=== PATIENT | female | born 1985 | race Caucasian/White ===

== ENCOUNTER 2017-01-25 14:19 | Emergency (ER) | payer MEDICAID ==
--- NOTE | 2017-01-25 14:37 | ED Physician Documentation ---
History of Present Illness - Stated complaint Stated Complaint: FEEL LIKE SOMETHING STUCK IN THROAT - Chief complaint Chief Complaint: Heent - History obtained from History obtained from: Patient, Family - History of Present Illness Timing: Today, How many hours ago (1) Pain level max: 4 Pain level now: 4 Improved by: nothing Worsened by: swallowing - Additonal information Additional information: Patient is a 31-year-old female who presents to the emergency department with a piece of pork stuck in her esophagus while eating today. She states it feels like it got stuck approximately midway in the esophagus. She states this is happened to her once several years ago. Has not had an endoscopy for this. Has been swallowing her saliva, but states that when she drinks water she vomits. No abdominal pain. No fevers. Review of Systems Constitutional: denies: Fever : denies: Now EGA Skin: denies: Rash PD PAST MEDICAL HISTORY - Past Medical History Past Medical History: Yes Cardiovascular: Hypertension Respiratory: Asthma - Past Surgical History Past Surgical History: Yes General: Cholecystectomy - Present Medications Home Medications: Ambulatory Orders Medication Instructions Recorded Confirmed No Known Home Medications [No 01/25/17 01/25/17 Known Home Medications] - Allergies Allergies/Adverse Reactions: Allergies Allergy/AdvReac Type Severity Reaction Status Date / Time No Known Drug Allergies Allergy Verified 01/25/17 14:25 - Social History Does the pt smoke?: No Smoking Status: Never smoker Does the pt drink ETOH?: Yes Does the pt have substance abuse?: No - Immunizations Immunizations are current?: Yes PD ED PE NORMAL - Vitals Vital signs reviewed: Yes - General General: Alert and oriented X 3, No acute distress - HEENT HEENT: Moist mucous membranes, Pharynx benign - Neck Neck: Supple, no meningeal sign - Cardiac Cardiac: RRR - Respiratory Respiratory: No respiratory distress, Clear bilaterally - Abdomen Abdomen: Soft, Non tender, Non distended - Derm Derm: Warm and dry - Neuro Neuro: Alert and oriented X 3 Results - Vitals Vitals: Vital Signs - 24 hr 01/25/17 01/25/17 14:22 15:17 Temperature 36.4 C L 36.6 C Heart Rate 101 H 84 Respiratory 20 18 Rate Blood Pressure 194/141 H 184/122 H O2 Saturation 96 99 Oxygen O2 Source Room air PD MEDICAL DECISION MAKING - ED course Complexity details: re-evaluated patient, considered differential, d/w patient, d/w family ED course: Patient is a 31-year-old female who presents to the emergency department with an impacted esophageal food bolus. Given EZ gas ii as well as Coca-Cola and the bolus passed. She is tolerating p.o. without difficulty. No vomiting. Recommend that she follow-up with an endoscopy as this has happened twice now. She also states she has not taken her blood pressure medications and her blood pressure is normally high. Patient counseled regarding signs and symptoms for which I believe and urgent re-evaluation would be necessary. Patient with good understanding of and agreement to plan and is comfortable going home at this time This document was made in part using voice recognition software. While efforts are made to proofread this document, sound alike and grammatical errors may occur. Departure - Departure Disposition: 01 Home, Self Care Clinical Impression: Food impaction of esophagus Qualifiers: Encounter type: initial encounter Qualified Code(s): T18.128A - Food in esophagus causing other injury, initial encounter Condition: Good Instructions: ED Foreign Body Esophageal Rslv Follow-Up: your,doctor in 1 week [Other] Comments: As this is happened to you twice, you should have an endoscopy to evaluate if you have strictures or other issues with your esophagus. Return if you worsen.
[2017-01-25 15:18] VITALS: BP 184/122
== END 2017-01-25 15:22 | disposition home or self-care (01) ==
LOC: ED 14:19
DX: T18.128A Food in esophagus causing other injury, initial encounter (principal); X58.XXXA Exposure to other specified factors, initial encounter; I10 Essential (primary) hypertension
CPT/HCPCS: 99283

== ENCOUNTER 2018-05-27 11:07 | Outpatient (CLI) | payer MEDICAID ==
--- NOTE | 2018-05-27 11:44 | XRAY Report ---
Reason: ground level foosh Procedure Date: 05/27/2018 Accession Number: [id number] / [id number] Procedure: XRN - Wrist 3 View RT CPT Code: FULL RESULT: EXAM: RIGHT WRIST RADIOGRAPHY EXAM DATE: 05/27/2018 11:23 AM. CLINICAL HISTORY: Ground level foosh. COMPARISON: None. TECHNIQUE: 3 views. FINDINGS: Bones: Normal. No fractures or bone lesions. Joints: Normal. No subluxations. Soft Tissues: Normal. No soft tissue swelling. IMPRESSION: Normal wrist radiography. RADIA
== END 2018-05-27 11:08 | disposition home or self-care (01) ==
LOC: DI.N 11:07
PROVIDERS: ATTEND Physician Assistant Medical
DX: M25.531 Pain in right wrist (principal)

== ENCOUNTER 2018-06-02 08:00 | Outpatient (CLI) | payer MEDICAID | END 2018-06-02 08:01 | disposition home or self-care (01) | LOC: LAB.N 08:00 | PROVIDERS: ATTEND Physician Assistant Medical | DX: Z13.89 Encounter for screening for other disorder (principal) | CPT/HCPCS: 36415; 86735; 86762; 86765 ==

== ENCOUNTER 2018-07-09 14:53 | Outpatient (CLI) | payer MEDICAID ==
--- NOTE | 2018-07-09 18:00 | Ultrasound Report ---
Reason: DYSFUNCTIONAL UTERINE BLEEDING,AMENORRHEA,SCONDARY Procedure Date: 07/09/2018 Accession Number: [id number] / [id number] Procedure: US - Pelvic w/Transvaginal CPT Code: FULL RESULT: EXAM: PELVIC ULTRASOUND EXAM DATE: 07/09/2018 03:45 PM. CLINICAL HISTORY: DYSFUNCTIONAL UTERINE BLEEDING,AMENORRHEA,SCONDARY. LMP 06/26/2018 COMPARISON: None. TECHNIQUE: Realtime transabdominal pelvic scan performed to identify the uterus and adnexa and as an overview of other pelvic structures, followed by transvaginal scan to provide greater detail of the uterus and adnexa, with static image documentation. FINDINGS: Uterus: 9.1 x 4.2 x 5.3 cm, volume 106 cc. Anteverted position. Normal overall size and echotexture. Masses: None. Endometrium: 11 mm. Normal. Cervix: Unremarkable. Right Ovary: 2.6 x 1.5 x 2 cm, volume 3.9 cc. Normal echotexture and blood flow. Left Ovary: 2.2 x 2.3 x 2.2 cm, volume 8.5 cc. Normal echotexture and blood flow. Free Fluid: None. Other: None. IMPRESSION: No significant abnormality pelvic ultrasound. RADIA
== END 2018-07-09 14:54 | disposition home or self-care (01) ==
LOC: DI 14:53
PROVIDERS: ATTEND Obstetrics & Gynecology
DX: N93.8 Other specified abnormal uterine and vaginal bleeding (principal); N91.1 Secondary amenorrhea
CPT/HCPCS: 76830; 76856

== ENCOUNTER 2018-07-30 09:45 | Day surgery (SDC) | payer MEDICAID ==
[2018-07-30] MEDS ORDERED: LACTATED RINGERS 1,000 ML IV ONE ×2 (10:19→12:30)
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
[2018-07-30] MEDS ORDERED: LIDO GARGLE 30 ML BOTTLE ONE (12:09)
[2018-07-30] MEDS ORDERED: LIDO GARGLE 30 ML BOTTLE TOP ONE (12:22)
[2018-07-30] MEDS ORDERED: BENZOCAINE/TETRACAINE/BUTAMBEN 20 GM TOP ONE (12:23)
[2018-07-30] MEDS ORDERED: MIDAZOLAM 2 MG/2 ML VIAL IVP ONE (12:43)
[2018-07-30] MEDS ORDERED: fentaNYL 100 MCG/2 ML VIAL IVP ONE (12:43)
[2018-07-30 13:04] VITALS: BP 134/79
== END 2018-07-30 09:46 | disposition home or self-care (01) ==
LOC: SDS 09:45
PROVIDERS: ATTEND Surgery
PROC: 0DB38ZX Excision of Lower Esophagus, Via Natural or Artificial Opening Endoscopic, Diagnostic (ICD-10-PCS; principal; 2018-07-30 11:15)
DX: K21.0 Gastro-esophageal reflux disease with esophagitis (principal); K44.9 Diaphragmatic hernia without obstruction or gangrene; R13.10 Dysphagia, unspecified; I10 Essential (primary) hypertension; J45.909 Unspecified asthma, uncomplicated; E66.01 Morbid (severe) obesity due to excess calories; Z68.41 Body mass index [BMI] 40.0-44.9, adult; F32.9 Major depressive disorder, single episode, unspecified; F41.9 Anxiety disorder, unspecified; F43.10 Post-traumatic stress disorder, unspecified; Z90.49 Acquired absence of other specified parts of digestive tract; Z79.51 Long term (current) use of inhaled steroids; Z87.891 Personal history of nicotine dependence
CPT/HCPCS: 43239; A9270; J7120

== ENCOUNTER 2018-08-12 08:00 | Outpatient (CLI) | payer MEDICAID ==
[2018-08-12 19:32] LABS: BASOPHILS % (AUTO) 0.4 %; EOSINOPHILS # (AUTO) 0.3 10^3/uL (0.0-0.7); HGB - HEMOGLOBIN 12.6 g/dL (12.0-16.0); LYMPHOCYTES % (AUTO) 36.4 %; MEAN CORPUSCULAR HEMOGLOBIN 29.4 pg (27.0-31.0); MEAN CORPUSCULAR HGB CONC 31.9 g/dL (32.0-36.0); MEAN CORPUSCULAR VOLUME 92.1 fL (81.0-99.0); MEAN PLATELET VOLUME 10.2 fL (7.9-10.8); MONOCYTES # (AUTO) 0.6 10^3/uL (0.0-1.0); MONOCYTES % (AUTO) 7.1 %; NEUTROPHILS # (AUTO) 4.3 10^3/uL (1.5-6.6); NEUTROPHILS % (AUTO) 51.5 %; PLT - PLATELET COUNT 294 10^3/uL (130-450); RED BLOOD COUNT 4.29 10^6/uL (4.20-5.40); WHITE BLOOD COUNT 8.4 x10^3/uL (4.8-10.8)
[2018-08-12 19:33] LABS: HB2 TOTAL 13.8 g/dL; HEMOGLOBIN A1C 0.72 g/dL; HEMOGLOBIN A1C % 6.9 % (4.6-6.2)
[2018-08-12 19:50] LABS: CALCIUM 9.3 mg/dL (8.5-10.3); CREATININE 0.7 mg/dL (0.4-1.0)
== END 2018-08-12 23:59 | disposition home or self-care (01) ==
LOC: LAB.N 08:00
PROVIDERS: ATTEND Physician Assistant Medical
DX: R73.9 Hyperglycemia, unspecified (principal)
CPT/HCPCS: 36415; 80048; 83036; 84443; 85025

== ENCOUNTER 2018-11-10 09:45 | Outpatient (CLI) | payer MEDICAID ==
--- NOTE | 2018-11-10 12:00 | Ultrasound Report ---
Reason: LOWER LEG PAIN, PEDAL EDEMA Procedure Date: 11/10/2018 Accession Number: [id number] / [id number] Procedure: US - Duplex Ext Veins Left CPT Code: FULL RESULT: EXAM: LEFT LOWER EXTREMITY VENOUS ULTRASOUND EXAM DATE: 11/10/2018 10:43 AM. CLINICAL HISTORY: Left leg pain and edema. Possible DVT. COMPARISON: None. TECHNIQUE: Real-time sonographic vascular imaging was performed by the bleach liquor maker through the LEFT lower extremity utilizing both color-flow and Doppler spectral analysis. Multiple bilingual inside sales representative static images were saved for review. FINDINGS: Common Femoral Vein (CFV): Normal. CFV-GSV Junction: Normal. Profunda Femoral Vein (PFV): Normal. Femoral Vein (FV) Prox: Normal. Femoral Vein (FV) Mid: Normal. Femoral Vein (FV) Dist: Normal. Popliteal Vein: Normal. Posterior Tibial Veins: Normal. Peroneal Veins: Normal. Contralateral Side CFV: Normal. Other: None. IMPRESSION: No evidence for left leg deep venous thrombosis. RADIA
== END 2018-11-10 09:46 | disposition home or self-care (01) ==
LOC: DI 09:45
PROVIDERS: ATTEND Physician Assistant Medical
DX: M79.662 Pain in left lower leg (principal); R60.0 Localized edema

== ENCOUNTER 2018-12-29 14:39 | Outpatient (CLI) | payer MEDICAID ==
--- NOTE | 2018-12-30 14:08 | XRAY Report ---
Reason: HIP JOINT PAIN Procedure Date: 12/29/2018 Accession Number: [id number] / [id number] Procedure: XRN - Hip w/Pelvis 2-3V LT CPT Code: Final Report FULL RESULT: EXAM: LEFT HIP AND PELVIS RADIOGRAPHY EXAM DATE: 12/29/2018 02:57 PM HISTORY: HIP JOINT PAIN COMPARISON: None TECHNIQUE: Single frontal view of the pelvis and frogleg lateral view of the LEFT hip, 2 views total FINDINGS: The pelvic ring is intact. Unremarkable SI joints. No significant focal lesion the pelvic bones. The right hip probably has some mild osteoarthritis with slight apical joint space narrowing and minimal femoral head osteophyte formation. IUD noted in the central pelvis. LEFT Hip: No focal bone lesion. Question of minimal osteoarthritis with slight joint space narrowing. IMPRESSION: Very mild bilateral hip osteoarthritis. Otherwise essentially unremarkable.
== END 2018-12-29 14:40 | disposition home or self-care (01) ==
LOC: DI.N 14:39
PROVIDERS: ATTEND Physician Assistant Medical
DX: M16.0 Bilateral primary osteoarthritis of hip (principal)

== ENCOUNTER 2019-01-26 13:00 | Outpatient (CLI) | payer MEDICAID | END 2019-01-26 13:01 | disposition home or self-care (01) | LOC: DI.N 13:00 | PROVIDERS: ATTEND Physician Assistant Medical | DX: Z53.9 Procedure and treatment not carried out, unspecified reason (principal) ==

== ENCOUNTER 2019-01-26 13:16 | Outpatient (CLI) | payer MEDICAID ==
--- NOTE | 2019-01-27 14:23 | XRAY Report ---
Reason: R shoulder pain Procedure Date: 01/26/2019 Accession Number: [id number] / [id number] Procedure: XRN - Shoulder 3 View RT CPT Code: Final Report FULL RESULT: EXAM: RIGHT SHOULDER RADIOGRAPHY EXAM DATE: 01/26/2019 01:29 PM. CLINICAL HISTORY: R shoulder pain. COMPARISON: None. TECHNIQUE: 3 views. FINDINGS: Bones: Normal. No fracture or bone lesion. Joints: The glenohumeral and acromioclavicular joints are normal. Soft tissues: The visualized hemithorax is unremarkable. No soft tissue swelling. IMPRESSION: Normal shoulder radiography. RADIA
== END 2019-01-26 13:17 | disposition home or self-care (01) ==
LOC: DI.N 13:16
PROVIDERS: ATTEND Physician Assistant Medical
DX: M25.511 Pain in right shoulder (principal)

== ENCOUNTER 2019-09-27 09:27 | Outpatient (CLI) | payer MEDICAID ==
[2019-09-27] MEDS ORDERED: GADOBUTROL 7.5 MMOL/7.5 ML VIAL ONE (09:38)
[2019-09-27] MEDS ORDERED: BUFFERED LIDOCAINE 10 ML SYRINGE ONE (09:38)
[2019-09-27] MEDS ORDERED: BUFFERED LIDOCAINE 10 ML SYRINGE IU ONE (11:19)
[2019-09-27] MEDS ORDERED: GADOBUTROL 7.5 MMOL/7.5 ML VIAL IVP ONE ×2 (11:20→12:00)
[2019-09-27] MEDS ORDERED: iohexoL-240 10 ML VIAL IVP ONE ×2 (11:21→12:00)
--- NOTE | 2019-09-27 13:40 | MRI Report ---
PROCEDURE: Arthrogram Shoulder RT INDICATIONS: PAIN IN RIGHT SHOULDER CONTRAST: 12 mL of diluted intra-articular gadolinium contrast. TECHNIQUE: After the administration of 12 mL of dilute intra-articular Gadolinium contrast, oblique coronal T1 a nd T2 spin echo with fat saturation, oblique sagittal T1 spin echo with and without fat saturation, o blique sagittal T2 fast spin echo with fat saturation, axial T1 spin echo with fat saturation through the shoulder. COMPARISON: Shoulder radiograph dated 01/26/2019. FINDINGS: Image quality: Excellent. Rotator cuff: Tendinosis and low-grade articular and bursal surface partial-thickness tear involving distal supraspinatus is seen. Distal infraspinatus and subscapularis tendinosis is also seen. No full -thickness rotator cuff tendon rupture. No significant rotator cuff muscle atrophy on sagittal images . Bones and bursae: No bone marrow contusions or fractures. Mild to moderate acromioclavicular joint o steoarthritic changes are seen with downward osteophyte formation depressing on musculotendinous junc tion of supraspinatus. Capsule and soft tissues: The labrum and glenohumeral ligaments appear intact. The long head of the biceps tendinosis and low-grade intrasubstance partial thickness tear is seen. The rotator interval appears normal, without fibrosis. The coracohumeral ligament is of normal thickness. No intra-artic ular bodies. IMPRESSION: 1. Tendinosis and low-grade articular and bursal surface partial-thickness tear involving distal supr aspinatus extending to musculotendinous junction. No full-thickness rotator cuff tendon rupture. Mild distal infraspinatus and subscapularis tendinosis. 2. [id number] acromioclavicular joint osteoarthritis. 3. No evidence of focal labral tear. 4. Proximal intra-articular portion of long head of biceps tendinosis and low-grade intrasubstance pa rtial thickness tear. Reviewed by: Davian Mathews MD on 09/27/2019 1:39 PM PDT Approved by: Davian Mathews MD on 09/27/2019 1:39 PM PDT Station ID: [id number]
--- NOTE | 2019-09-27 13:42 | XRAY Report ---
PROCEDURE: Arthrogram Needle Placement INDICATIONS: PAIN IN RIGHT SHOULDER CONTRAST: CONTRAST: omnapaque 240 FLUOROSCOPY TIME: FLUORO TIME: 0.2 min and NUMBER IMAGES: 3 TECHNIQUE: The indications, alternatives, benefits, risks, and complications of the procedure were explained to the patient. Written informed consent was obtained and placed in the chart. The shoulder was examin ed fluoroscopically and a site for needle placement chosen for entry into the glenohumeral joint from an anterior approach. The skin was prepped and draped in the usual fashion, and 1% lidocaine infilt rated from skin down to joint capsule. A spinal needle was inserted into the glenohumeral joint, and a small amount of iodinated contrast media injected to confirm intra-articular placement of the need le tip. This was followed by approximately 12 mL dilute solution of a gadolinium containing MR contr ast agent. The needle was removed and a dressing was applied. The patient was given postprocedural instructions and sent to the MR suite for MR imaging. FINDINGS: A single fluoroscopic spot image demonstrates intra-articular location of injected iodinated contrast . IMPRESSION: Successful fluoroscopically guided administration of dilute Gadolinium solution into the shoulder vinicio irby for MR arthrogram. Reviewed by: Luz Ritter MD on 09/27/2019 11:59 AM PDT Approved by: Luz Ritter MD on 09/27/2019 11:59 AM PDT Station ID: [id number]
== END 2019-09-27 09:28 | disposition home or self-care (01) ==
LOC: DI 09:27
PROVIDERS: ATTEND Nurse Practitioner Family
DX: M75.111 Incomplete rotator cuff tear or rupture of right shoulder, not specified as traumatic (principal); S46.121A Laceration of muscle, fascia and tendon of long head of biceps, right arm, initial encounter; M19.011 Primary osteoarthritis, right shoulder
CPT/HCPCS: 23350; 73222; 77002; A9585; Q9966

== ENCOUNTER 2020-01-04 08:00 | Outpatient (CLI) | payer MEDICAID ==
[2020-01-04 18:08] LABS: BASOPHILS # (AUTO) 0.1 10^3/uL (0.0-0.1); BASOPHILS % (AUTO) 0.5 %; EOSINOPHILS # (AUTO) 0.7 10^3/uL (0.0-0.7); EOSINOPHILS % (AUTO) 5.1 %; HGB - HEMOGLOBIN 13.7 g/dL (12.0-16.0); LYMPHOCYTES # (AUTO) 3.8 10^3/uL (1.5-3.5); LYMPHOCYTES % (AUTO) 29.3 %; MEAN CORPUSCULAR HGB CONC 33.7 g/dL (32.0-36.0); MEAN CORPUSCULAR VOLUME 91.9 fL (81.0-99.0); MONOCYTES # (AUTO) 0.8 10^3/uL (0.0-1.0); NEUTROPHILS # (AUTO) 7.6 10^3/uL (1.5-6.6); NEUTROPHILS % (AUTO) 58.3 %; PLT - PLATELET COUNT 329 10^3/uL (130-450); RED BLOOD COUNT 4.42 10^6/uL (4.20-5.40); RED CELL DISTRIBUTION WIDTH 13.1 % (12.0-15.0); WHITE BLOOD COUNT 13.1 x10^3/uL (4.8-10.8)
[2020-01-04 19:44] LABS: ALBUMIN 3.8 g/dL (3.2-5.5); ALBUMIN/GLOBULIN RATIO 1.1 (1.0-2.2); ALKALINE PHOSPHATASE 67 IU/L (42-121); ALT ALANINE AMINOTRANSFERASE 15 IU/L (10-60); AST ASPARTATE AMINOTRANSFERASE 15 IU/L (10-42); BILIRUBIN,TOTAL 0.5 mg/dL (0.2-1.0); BUN - BLOOD UREA NITROGEN 10 mg/dL (6-20); CALCIUM 8.9 mg/dL (8.5-10.3); CARBON DIOXIDE - CO2 28 mmol/L (21-32); CHLORIDE 100 mmol/L (101-111); CHOL/HDL RATIO 4.2 (<4.4); CHOLESTEROL 172 mg/dL; CREATININE 0.6 mg/dL (0.4-1.0); GLUCOSE 96 mg/dL (70-100); HDL CHOLESTEROL 41 mg/dL; LDL CHOLESTEROL,CALCULATED 102 mg/dL; LDL/HDL RATIO 2.5 (<4.4); SODIUM 136 mmol/L (135-145); TOTAL PROTEIN 7.3 g/dL (6.7-8.2); VLDL CHOLESTEROL 29 mg/dL
[2020-01-04 21:06] LABS: HEMOGLOBIN A1c% 6.9 % (4.27-6.07)
== END 2020-01-04 23:59 | disposition home or self-care (01) ==
LOC: LAB.WCP 08:00
PROVIDERS: ATTEND Nurse Practitioner Family
DX: E11.9 Type 2 diabetes mellitus without complications (principal); I10 Essential (primary) hypertension
CPT/HCPCS: 36415; 80053; 80061; 83036; 83721; 84443; 85025

== ENCOUNTER 2020-02-14 10:54 | Outpatient (CLI) | payer OTHER, MEDICAID ==
--- NOTE | 2020-02-14 14:48 | XRAY Report ---
PROCEDURE: Cervical Spine Complete INDICATIONS: NECK PX TECHNIQUE: 4 view(s) of the cervical spine were acquired, including bilateral oblique views. COMPARISON: None. FINDINGS: Bones: No fractures or dislocations to the T1 level. The lateral masses of C1 appear intact on the odontoid view. No suspicious bony lesions. Soft tissues: No prevertebral soft tissue swelling. IMPRESSION: No trauma found, no subluxation seen. No identifiable spinal or foraminal stenosis. Reviewed by: Jose De Los Santos MD on 02/14/2020 2:46 PM PST Approved by: Jose De Los Santos MD on 02/14/2020 2:46 PM PST Station ID: [id number]
== END 2020-02-14 23:59 | disposition home or self-care (01) ==
LOC: DI.N 10:54
PROVIDERS: ATTEND Orthopaedic Surgery
DX: M54.2 Cervicalgia (principal)

== ENCOUNTER 2020-03-08 09:54 | Outpatient (CLI) | payer MEDICAID ==
[2020-03-08 10:50] VITALS: BP 138/92
--- NOTE | 2020-03-08 10:50 | SLEEP CARE CONSULTATION ---
Information from patient questionnaire entered by Valorie Richard. I have reviewed and concur with the information entered by Valorie Richard. This document represents the service I personally performed and the decisions made by me, Brittani Fuentes ARNP. History of Present Illness Service Date and Time: 03/08/2020 0954 Reason for Visit: New patient Chief Complaint: reports: Unrefreshed sleep, Snoring, Excessive daytime sleepiness, Frequent awakenings at night, Other (heart palpitations). denies: Observed pauses in breathing Date of Onset: a few months Usual bedtime: 11 pm Time it takes to fall asleep: 30 minutes or so Snores at night: Yes Observed to quit breathing while asleep: No Sleeps alone due to snoring: No Number of times waking at night: many Reasons for waking at night: reports: Snoring, Pain, Bathroom. denies: Choking, Gasping for air Toss, Turn, or Twitch while sleeping: Yes Recalls having dreams: No Usually gets out of bed at: 8 am Feels refreshed in the morning: No Morning headache: Yes (5 days a week, lasting for hours to all days) Sleepy or fatigued during the day: Yes Ever fallen asleep while driving: Yes (drowsy driving, no accidents) Takes day naps: No Dreams during day naps: No Prior sleep studies: No Additional HPI information: I had the pleasure of seeing LEVY VERGARA today regarding the possibility of her having a sleep disorder. Her current complaints are snoring and heart palpitations. She was off of blood pressure for some time due to covid pandemic. They did an EKG and found some left ventricle hypertrophy and was referred for a sleep study. She does snore but her (who is on a CPAP) has not seen her have pauses in breathing while sleeping. She does not feel rested upon awakening and is "always tired". She has right shoulder rotator cuff tear that does not let her sleep well due to pain. She also has PTSD. She wakes up a lot at night and tosses/turns throughout the night. She does take trazadone on her days off to try to get more sleep. It will help her fall asleep but not keep her asleep. She has had hypertension since she was 16 after having pre-eclampsia. - Parasomnia Symptoms Ever been unable to move upon waking from sleep: No Walks in sleep: No Talks in sleep: No Ever acted out dreams in sleep: Yes (rarely) Ever felt weak in the knees when startled or emotional: Yes Bothered by creepy, crawly, restless sensations in legs: Yes (can be during day and night) Problems with memory or concentration: Yes (concentration mostly; has fairly good memory) Subjective Initial [place] Sleepiness Scale score: 10 (in 2020) Past Medical History Past Medical History: reports: Hypertension, Diabetes, Anxiety, Asthma, Depression, GERD, Other (PTSD) Social History 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 Patient is Single and lives in [place]. Have you smoked in the past 12 months: No Cigarettes per day (20/pack): 20 Years of smokin Quit date: 2010 Smoking Pack Years: 12.0 Alcohol use: Yes Alcohol amount and frequency: 1 drink monthly Caffeine use: Yes Caffeine amount and frequency: 1 daily soda or coffee Family History Family history of sleep disordered breathing: Yes (mother) Family Hx Sleep Apnea: Mother: Snoring Allergies and Home Medications Drug allergies reviewed: Yes (NKDA) Home medication list reviewed: Yes Allergy and home medication list: Lisinopril 40 mg HCTZ 25 mg Trazadone 50 mg Fluoxetine 20 mg Metformin 500 mg 2x day Albuterol 2 puffs as needed Review of Systems Cardiovascular: reports: high blood pressure, palpitations Respiratory: reports: shortness of breath Gastrointestinal: reports: heartburn, difficulty swallowing Neurological: reports: headaches Psychiatric: reports: anxiety, depression Ear/Nose/Throat: reports: wisdom teeth removed Musculoskeletal: reports: joint pain, neck pain, muscle pain or cramping Physical Exam Blood Pressure: 138/92 Cuff size: long Heart Rate: 75 O2 Saturation: 98 Height: 5 ft 5 in Weight: 234 lb Body Mass Index: 38.9 BMI Classification: Obese Neck circumference: 17 (inches) Mouth and throat: narrow oropharynx Soft palate: long Hard palate: normal Uvula: normal Uvula visualization: 50% Mallampati Class II Tongue: enlarged in size with teeth tellez on lateral edges Tonsils: 2+ Chin and jaw: normal size and position Neck: normal w/o lymphadenopathy or thyromegaly Heart: regular rate and rhythm Lungs: clear bilaterally Impression and Plan 1. Suspected Obstructive Sleep Apnea-Hypopnea Syndrome, as suggested by a history of loud and irregular snoring, morning headache, frequent awakening during the night, unrefreshed sleep, cognitive impairment, and excessive daytime sleepiness. I reviewed with the patient that a narrow oropharynx and obesity are common predisposing factors for obstructive sleep apnea-hypopnea syndrome. I recommend proceeding to polysomnography to confirm the diagnosis and to assess severity. If the patient has significant sleep disordered breathing, a manual CPAP titration study will also be performed to find the optimal treatment pressure. I informed the patient of what the sleep studies involve and after some discussion, obtained agreement to proceed. The pathophysiology of obstruct lory sleep apnea-hypopnea syndrome was discussed with the patient and health risks of cardiovascular and cerebrovascular disease if not treated. AAS brochure for obstructive sleep apnea-hypopnea syndrome given and reviewed. Risks of drowsy driving discussed in detail and patient advised to avoid long distance driving and to meat puller at the first sign of drowsiness. Patient agreed to plan. * Schedule polysomnography +- manual CPAP titration study and return in 1-2 weeks after the study to discuss result and initiate therapy. * Avoid long distance driving or driving when feeling sleepy. * Avoid alcohol, sedative and muscle relaxant around bedtime. * Attempt to lose weight. * Review instructions provided by trained office staff on how to prepare for the sleep study. * Return for follow-up after sleep study completed. Counseling Topics: Weight loss health impact Visit Type: In Office Time Spent with Patient (minutes): 32 Provider Statement: I spent 100% of the Face to Face Visit with the patient with greater than 50% spent counseling the patient and coordination of care.
== END 2020-03-08 09:55 | disposition home or self-care (01) ==
LOC: SC 09:54
PROVIDERS: ATTEND Nurse Practitioner Family
DX: G47.10 Hypersomnia, unspecified (principal); R41.89 Other symptoms and signs involving cognitive functions and awareness; G47.8 Other sleep disorders; R51.9 Headache, unspecified; R06.83 Snoring; E66.9 Obesity, unspecified; Z68.38 Body mass index [BMI] 38.0-38.9, adult
CPT/HCPCS: 99203; 99212

== ENCOUNTER 2020-03-20 09:50 | Outpatient (CLI) | payer MEDICAID | END 2020-03-20 09:51 | disposition home or self-care (01) | LOC: DI 09:50 | PROVIDERS: ATTEND Nurse Practitioner Family | DX: I51.7 Cardiomegaly (principal); I10 Essential (primary) hypertension | CPT/HCPCS: 93306 ==

== ENCOUNTER 2020-03-22 10:54 | Outpatient (CLI) | payer MEDICAID | END 2020-03-22 10:55 | disposition home or self-care (01) | LOC: SC 10:54 | PROVIDERS: ATTEND Nurse Practitioner Family | DX: Z53.9 Procedure and treatment not carried out, unspecified reason (principal) ==

== ENCOUNTER 2020-05-18 08:00 | Outpatient (CLI) | payer MEDICAID ==
[2020-05-18 21:34] LABS: BACTERIAL VAGINOSIS DNA POSITIVE (NEGATIVE); CANDIDA GLABRATA DNA NEGATIVE (NEGATIVE); CANDIDA GROUP DNA NEGATIVE (NEGATIVE); CANDIDA KRUSEI DNA NEGATIVE (NEGATIVE); TRICHOMONAS VAGINALIS DNA NEGATIVE (NEGATIVE)
[2020-05-18 22:25] LABS: CHLAMYDIA TRACHOMATIS DNA NEGATIVE (NEGATIVE); NEISSERIA GONORRHOEAE DNA NEGATIVE (NEGATIVE); TRICHOMONAS VAGINALIS DNA NEGATIVE (NEGATIVE)
== END 2020-05-18 23:59 | disposition home or self-care (01) ==
LOC: LAB.R 08:00
PROVIDERS: ATTEND Obstetrics & Gynecology
DX: Z11.3 Encounter for screening for infections with a predominantly sexual mode of transmission (principal)
CPT/HCPCS: 87491; 87591; 87661; 87801

== ENCOUNTER 2020-06-28 15:02 | Outpatient (CLI) | payer MEDICAID | END 2020-06-28 15:03 | disposition home or self-care (01) | LOC: LAB 15:02 | PROVIDERS: ATTEND Obstetrics & Gynecology | DX: N83.9 Noninflammatory disorder of ovary, fallopian tube and broad ligament, unspecified (principal) | CPT/HCPCS: 36415; 82378; 86304 ==

== ENCOUNTER 2020-06-30 07:15 | Outpatient (CLI) | payer MEDICAID | END 2020-06-30 07:16 | disposition home or self-care (01) | LOC: LAB 07:15 | PROVIDERS: ATTEND Obstetrics & Gynecology | DX: Z01.812 Encounter for preprocedural laboratory examination (principal); N83.9 Noninflammatory disorder of ovary, fallopian tube and broad ligament, unspecified; E11.9 Type 2 diabetes mellitus without complications; Z20.822 Contact with and (suspected) exposure to COVID-19 ==

== ENCOUNTER 2020-07-04 06:33 | Day surgery (SDC) | payer MEDICAID ==
--- NOTE | 2020-07-04 05:18 | ANESTHESIA POST OP EVALUATION ---
Anesthesia Post Eval - Post Anesthesia Eval CV Function Including HR & BP: Stable Pain Control: Satisfactory Nausea & Vomiting: Negative Mental Status: Baseline Respiratory Status: Airway Patent Hydration Status: Satisfactory Anesthesia Complications: None
[~2020-07-04 06:33] MED LIST: ACETAMINOPHEN 1,000 MG/100 ML 100 ML IV ONE; CELECOXIB 100 MG CAPSULE PO ONE; GABAPENTIN 400 MG CAPSULE ONE; ceFAZolin 2 GM/50 ML 2 GM/50 ML BAG IV ONE
[2020-07-04] MEDS ORDERED: LACTATED RINGERS 1,000 ML IV ONE ×2 (06:45→10:29)
[2020-07-04] MEDS ORDERED: LIDOCAINE-MPF 2% 5 ML VIAL ONE (06:58)
[2020-07-04] MEDS ORDERED: PROPOFOL 200 MG/20 ML VIAL IVP ONE (06:58)
[2020-07-04] MEDS ORDERED: ROCURONIUM 50 MG/5 ML VIAL ONE (07:00)
[2020-07-04] MEDS ORDERED: fentaNYL 100 MCG/2 ML VIAL ONE (07:01)
[2020-07-04] MEDS ORDERED: MIDAZOLAM 2 MG/2 ML VIAL ONE (07:01)
[2020-07-04 07:04] LABS: HCG UR QUAL NEGATIVE
[2020-07-04] MEDS ORDERED: BUPIVACAINE 0.5% PF 30 ML VIAL ONE (07:08)
[2020-07-04] MEDS ORDERED: LIDOCAINE MPF 2%-EPI 1:200000 20 ML VIAL ONE (07:08)
--- NOTE | 2020-07-04 07:11 | ANESTHESIA ---
Pre-Anesthesia VS, & Labs - Diagnosis ovarian mass, desires sterilization - Procedure lap BSO, lap cystectomy Vital Signs: Temp Pulse Resp BP Pulse Ox 36.5 C 75 14 129/87 H 96 07/04/20 06:42 07/04/20 06:42 07/04/20 06:42 07/04/20 06:42 07/04/20 06:42 Height: 5 ft 5 in Weight (kg): 105 kg Body Mass Index: 38.5 BMI Classification: Obese - NPO >8 hours - Is Patient ?: No - Lab Results Fish Bones: 07/04/20 07:13 Home Medications and Allergies Home Medications: Ambulatory Orders metFORMIN [Glucophage] 500 mg PO BID 07/04/20 Albuterol Sulf [Ventolin Hfa Inhaler] 1 - 2 puffs INH Q4HR PRN 07/30/18 FLUoxetine [PROzac] 20 mg PO DAILY 07/30/18 hydroCHLOROthiazide [Hydrochlorothiazide] 25 mg PO DAILY 07/30/18 lisinopriL [Lisinopril] 40 mg PO DAILY 07/30/18 traZODone [Desyrel] 50 mg PO HS 07/30/18 metFORMIN [Glucophage] 500 mg PO BID 07/04/20 Allergies/Adverse Reactions: Allergies Allergy/AdvReac Type Severity Reaction Status Date / Time No Known Drug Allergies Allergy Verified 07/30/18 10:20 Anes History & Medical History - Anesthetic History Anesthesia Complications: reports: No previous complications Family history of Anesthesia Complications: Denies Family history of Malignant Hyperthermia: Denies - Medical History Cardiovascular: reports: Hypertension Pulmonary: reports: Asthma Gastrointestinal: reports: GERD Urinary: reports: None Musculoskeletal: reports: Osteoarthritis Endocrine/Autoimmune: reports: Type 2 diabetes Skin: reports: None Smoking Status: Never smoker - Surgical History General: reports: Cholecystectomy, EGD Exam General: Alert, Oriented x3, Cooperative Dental: WNL Mouth Openin Fingerbreadth Neck Mobility: Normal Mallampati classification: III Thyromental Distance: less than 4 cm Respiratory: Lungs clear Cardiovascular: Regular rate Plan Anesthesia Type: General Consent for Procedure(s) Verified and Reviewed: Yes Code Status: Attempt Resuscitation ASA classification: 3-Severe systemic disease Is this case an emergency?: No
[2020-07-04 07:26] LABS: BASOPHILS % (AUTO) 0.4 %; EOSINOPHILS # (AUTO) 0.3 10^3/uL (0.0-0.7); EOSINOPHILS % (AUTO) 3.1 %; HCT - HEMATOCRIT 39.5 % (37.0-47.0); HGB - HEMOGLOBIN 13.2 g/dL (12.0-16.0); LYMPHOCYTES # (AUTO) 3.6 10^3/uL (1.5-3.5); LYMPHOCYTES % (AUTO) 33.8 %; MEAN CORPUSCULAR HEMOGLOBIN 31.1 pg (27.0-31.0); MEAN CORPUSCULAR HGB CONC 33.4 g/dL (32.0-36.0); MEAN CORPUSCULAR VOLUME 92.9 fL (81.0-99.0); MEAN PLATELET VOLUME 9.7 fL (7.9-10.8); MONOCYTES # (AUTO) 0.8 10^3/uL (0.0-1.0); MONOCYTES % (AUTO) 7.3 %; NEUTROPHILS # (AUTO) 5.8 10^3/uL (1.5-6.6); NEUTROPHILS % (AUTO) 54.7 %; PLT - PLATELET COUNT 279 10^3/uL (130-450); RED BLOOD COUNT 4.25 10^6/uL (4.20-5.40); RED CELL DISTRIBUTION WIDTH 13.1 % (12.0-15.0); WHITE BLOOD COUNT 10.7 x10^3/uL (4.8-10.8)
[2020-07-04] MEDS ORDERED: DEXAMETHASONE 4 MG/ML VIAL ONE (09:06)
[2020-07-04] MEDS ORDERED: ONDANSETRON 4 MG/2 ML VIAL ONE (09:06)
[2020-07-04] MEDS ORDERED: BUPIVACAINE 0.5% PF 30 ML VIAL INFIL ONE (09:34)
[2020-07-04] MEDS ORDERED: LIDOCAINE 2%-EPI 1:100000 20 ML MDV SUBQ ONE (09:35)
[2020-07-04] MEDS ORDERED: GLYCOPYRROLATE 1 MG/5 ML VIAL ONE (09:39)
[2020-07-04] MEDS ORDERED: NEOSTIGMINE 1 MG/1 ML 10 ML MDV ONE (09:39)
[2020-07-04] MEDS ORDERED: fentaNYL 100 MCG/2 ML VIAL IVP PRN (10:35)
[2020-07-04] MEDS ORDERED: NALOXONE 0.4 MG/ML VIAL IVP PRN (10:35)
[2020-07-04] MEDS ORDERED: ePHEDrine 50 MG/ML VIAL IVP PRN (10:35)
[2020-07-04] MEDS ORDERED: MORPHINE 2 MG/ML CARPUJECT IVP PRN (10:35)
[2020-07-04] MEDS ORDERED: ATROPINE ABBOJECT 1 MG/10 ML SYRINGE IVP PRN (10:35)
[2020-07-04] MEDS ORDERED: ONDANSETRON 4 MG/2 ML VIAL IVP PRN ×2 (10:35→10:48)
[2020-07-04] MEDS ORDERED: HYDROmorphone 0.5 MG/0.5 ML SYRINGE IVP PRN (10:48)
[2020-07-04] MEDS ORDERED: LORazepam 2 MG/ML VIAL IVP PRN (10:48)
[2020-07-04] MEDS ORDERED: oxyCODONE 5 MG TABLET PO PRN (10:48)
[2020-07-04] MEDS: HYDROmorphone 0.5 MG/0.5 ML SYRINGE IVP PRN ×2 (10:49→11:06)
[2020-07-04] MEDS ORDERED: HYDROmorphone 1 MG/ML CARPUJECT ONE (10:51)
--- NOTE | 2020-07-04 10:52 | OPERATIVE REPORT ---
Operative Report - General Procedure Date: 07/04/20 Planned Procedure: Laparoscopic bilateral salpingectomy right oophorectomy Pre-Op Diagnosis: Undesired fertility left ovarian cyst Procedure Performed: Same - Procedure Note Primary Surgeon: Geo Brady MD Secondary Surgeon: Dilcia Zarate MD Anesthesia Provider: RADHA Segal Anesthesia Technique: General ET tube Pathology: Tubes and left ovary IV Fluids (mL): 1,000 Estimated Blood Loss (mL): 15 Urine Output (mL): 100 Findings: Upon entering the abdominal cavity the tubes and ovaries appeared to be free of disease the left ovary was adhered to the posterior cul-de-sac. - Other Other Information/Narrative: Following adequate endotracheal anesthesia pelvic examination under anesthesia was performed. At this point the uterus was difficult to palpate secondary to the abdominal wall thickness. She was prepped and draped in the usual fashion a speculum was placed in the vagina and cervix was visualized it was grasped with a single-tooth tenaculum the uterosacral ligaments on each side were injected with 0.5% Marcaine with 2% lidocaine with epinephrine. 5 cc was used in each side. The cervix was dilated up to 8 mm and then a HUMI uterine manipulator is placed. The IUD strings were visualized. The black and white printer operator's gloves were changed and following local anesthesia with Marcaine with epinephrine a vertical incision was made in the subumbilical area. A 5 mm trocar and sheath were placed without difficulty 2 additional ports were placed both in the left and the right hand side. These were at the level of the umbilicus local anesthesia was used following a skin incision with a #15 blade and both trochars were placed under direct visualization. The pelvis was inspected with the aforementioned findings. The left fallopian tube was grasped at the fimbriated end cauterized with the LigaSure all the way to the cornu and then removed out through the port. The right true tube was treated in identical fashion. The left ovary was then grasped it was noted to be tethered to the cul-de-sac. The spot of adhesions was then relieved utilizing both blunt as well as grasper. The ovary was then removed following cauterization of the infundibulopelvic ligament as well as the ovarian ligament and the utero-ovarian ligament care was taken to isolate the ureter prior to this resection. At this point the right incision was extended with a #15 blade and an 11 mm port was placed in Endo Catch bag was placed into the abdominal cavity the ovary was placed in this bag it was attempted to be brought out through the incision however the fascia was tight so a Tubbs was used to spread the fascia. I was then brought through the skin. The defect was then closed with a iyniqs-me-atupw of 0 Vicryl utilizing a Venkatesh Wilfredo. The CO2 was then allowed to escape and all 3 ports were closed with 4-0 Monocryl subcuticular. The HUMI catheter was deflated and removed from the cervix. Dr. Zarate throughout this entire procedure was instrumental to assist in the tubal ligation as well as the removal of the left ovary. Patient tolerated procedure well and was taken recovery in stable condition sponge and needle counts were correct.
[2020-07-04] MEDS ORDERED: LACTATED RINGERS 1,000 ML IV SCH (11:00)
[2020-07-04] MEDS ORDERED: ALBUTEROL NEB 2.5 MG/3 ML INH STA (11:50)
[2020-07-04] MEDS ORDERED: ALBUTEROL NEB 2.5 MG/3 ML INH ONE (11:53)
[2020-07-04 12:29] VITALS: BP 139/83
--- NOTE | 2020-07-04 15:02 | ANESTHESIA POST OP EVALUATION ---
Anesthesia Post Eval - Post Anesthesia Eval Vitals: Last Vital Signs Temp 36.8 C 07/04/20 11:33 Pulse 93 07/04/20 12:28 Resp 18 07/04/20 12:28 BP 139/83 H 07/04/20 12:28 Pulse Ox 96 07/04/20 12:28 CV Function Including HR & BP: Stable Pain Control: Satisfactory Nausea & Vomiting: Negative Mental Status: Baseline Respiratory Status: Airway Patent Hydration Status: Satisfactory Anesthesia Complications: None
== END 2020-07-04 06:34 | disposition home or self-care (01) ==
LOC: SDS 06:33
PROVIDERS: ATTEND Obstetrics & Gynecology
PROC: 0UT74ZZ Resection of Bilateral Fallopian Tubes, Percutaneous Endoscopic Approach (ICD-10-PCS; 2020-07-04)
PROC: 0UT14ZZ Resection of Left Ovary, Percutaneous Endoscopic Approach (ICD-10-PCS; principal; 2020-07-04 07:30)
DX: D27.1 Benign neoplasm of left ovary (principal); N83.02 Follicular cyst of left ovary; Z30.2 Encounter for sterilization; N73.6 Female pelvic peritoneal adhesions (postinfective); E11.9 Type 2 diabetes mellitus without complications; I10 Essential (primary) hypertension; F41.9 Anxiety disorder, unspecified; F32.9 Major depressive disorder, single episode, unspecified; F43.10 Post-traumatic stress disorder, unspecified; K21.9 Gastro-esophageal reflux disease without esophagitis; J45.909 Unspecified asthma, uncomplicated; E66.9 Obesity, unspecified; Z68.35 Body mass index [BMI] 35.0-35.9, adult; Z79.84 Long term (current) use of oral hypoglycemic drugs; Z79.899 Other long term (current) drug therapy; Z87.891 Personal history of nicotine dependence; Z90.49 Acquired absence of other specified parts of digestive tract; Z97.5 Presence of (intrauterine) contraceptive device
CPT/HCPCS: 36415; 58661; 81025; 85025; 86850; 86900; 86901; A9270; J0131; J0690; J1170; J7120

== ENCOUNTER 2020-11-22 08:50 | Outpatient (CLI) | payer OTHER ==
--- NOTE | 2020-11-22 13:06 | MRI Report ---
PROCEDURE: Shoulder RT W/O INDICATIONS: RIGHT SHOULDER TENDONITIS TECHNIQUE: Noncontrast oblique coronal T2 fast spin echo with fat saturation, oblique sagittal T1 spin echo and T2 fast spin echo with fat saturation, axial T1 spin echo and T2 fast spin echo with fat saturation t hrough the shoulder. COMPARISON: September 27, 2019. Findings: Supraspinatus: Mild tendinopathy with small partial bursal surface tear. Infraspinatus: Mild tendinopathy with small partial articular surface tear. Subscapularis: No evidence of tear. Teres minor: No evidence of tear. Labrum: No evidence of tear. Biceps tendon: No evidence of subluxation or tear. Acromioclavicular joint: Normal alignment. Moderate arthrosis with fluid signal within the articulat ion. Muscle: Grade 1/2 atrophy of the supraspinatus. Bones: No significant abnormality. Specifically, no evidence of fracture, contusion, or necrosis. Het erogeneous marrow signal. Small focus of fibrocystic degenerative change in the humeral head. Miscellaneous: Small glenohumeral joint effusion. Minimal subacromial/deltoid bursal fluid. No intra-articular bodies. Intact coracoclavicular ligament. IMPRESSION: 1. Mild supraspinatus tendinopathy with small partial bursal surface tear. 2. Mild infraspinatus tendinopathy with small partial articular surface tear. 3. Moderate arthrosis of the AC joint. 4. Minimal subacromial/subdeltoid bursitis. 5. Small glenohumeral joint effusion. Reviewed by: Dheeraj Rainey MD on 11/22/2020 1:05 PM PDT Approved by: Dheeraj Rainey MD on 11/22/2020 1:05 PM PDT Station ID: [id number]
== END 2020-11-22 08:51 | disposition home or self-care (01) ==
LOC: DI 08:50
PROVIDERS: ATTEND Orthopaedic Surgery
DX: M75.111 Incomplete rotator cuff tear or rupture of right shoulder, not specified as traumatic (principal); M19.011 Primary osteoarthritis, right shoulder; M75.51 Bursitis of right shoulder; M25.411 Effusion, right shoulder

== ENCOUNTER 2021-01-17 09:06 | Day surgery (SDC) | payer OTHER, MEDICAID ==
[2021-01-17] MEDS ORDERED: ACETAMINOPHEN 1,000 MG/100 ML 100 ML IV ONE (09:23)
[2021-01-17] MEDS ORDERED: CELECOXIB 100 MG CAPSULE PO ONE (09:24)
[2021-01-17] MEDS ORDERED: MIDAZOLAM 2 MG/2 ML VIAL ONE (09:26)
[2021-01-17] MEDS ORDERED: ROPIVACAINE 0.5% PF 20 ML AMPULE ONE (09:27)
[2021-01-17 09:28] LABS: HCG UR QUAL NEGATIVE
[2021-01-17] MEDS ORDERED: DEXMEDETOMIDINE 200 MCG/2 ML VIAL ONE (09:28)
[2021-01-17] MEDS ORDERED: LIDOCAINE-MPF 2% 5 ML VIAL ONE (09:30)
[2021-01-17] MEDS ORDERED: PROPOFOL 200 MG/20 ML VIAL IVP ONE (09:31)
[2021-01-17] MEDS ORDERED: fentaNYL 100 MCG/2 ML VIAL ONE (09:32)
[2021-01-17] MEDS ORDERED: ONDANSETRON 4 MG/2 ML VIAL ONE ×2 (09:33→13:32)
[2021-01-17] MEDS ORDERED: DEXAMETHASONE 4 MG/ML VIAL ONE (09:33)
[2021-01-17] MEDS ORDERED: ROCURONIUM 50 MG/5 ML VIAL ONE ×2 (09:33→11:25)
[2021-01-17] MEDS ORDERED: KETOROLAC 15 MG/ML VIAL IVP STA (09:41)
[2021-01-17] MEDS ORDERED: oxyCODONE 5 MG TABLET PO PRN (09:41)
--- NOTE | 2021-01-17 09:43 | ANESTHESIA ---
Pre-Anesthesia VS, & Labs - Diagnosis right shoulder arthroscopy, RCR Syndrome, RIght shoulder bicep tendonitis - Procedure Right Shoulder Arthroscopy Vital Signs: Temp Pulse Resp BP Pulse Ox 36.8 C 81 19 169/88 H 95 01/17/21 09:24 01/17/21 09:24 01/17/21 09:24 01/17/21 09:24 01/17/21 09:24 Height: 5 ft 5 in Weight (kg): 99.1 kg Body Mass Index: 36.3 BMI Classification: Obese - NPO >8 hours - Is Patient ?: No - Lab Results Lab results reviewed: Yes Home Medications and Allergies Albuterol Sulf [Ventolin Hfa Inhaler] 1 - 2 puffs INH Q4HR PRN 07/30/18 FLUoxetine [PROzac] 20 mg PO DAILY 07/30/18 hydroCHLOROthiazide [Hydrochlorothiazide] 25 mg PO DAILY 07/30/18 lisinopriL [Lisinopril] 40 mg PO DAILY 07/30/18 traZODone [Desyrel] 50 mg PO HS PRN 07/30/18 metFORMIN [Glucophage] 500 mg PO TID 07/04/20 Allergies/Adverse Reactions: Allergies Allergy/AdvReac Type Severity Reaction Status Date / Time No Known Drug Allergies Allergy Verified 07/30/18 10:20 Anes History & Medical History - Anesthetic History Anesthesia Complications: reports: No previous complications Family history of Anesthesia Complications: Denies Family history of Malignant Hyperthermia: Denies - Medical History Cardiovascular: reports: Hypertension Pulmonary: reports: Asthma Gastrointestinal: reports: GERD Urinary: reports: None Musculoskeletal: reports: Osteoarthritis Endocrine/Autoimmune: reports: Type 2 diabetes Skin: reports: None Smoking Status: Never smoker - Surgical History General: reports: Cholecystectomy Gynecologic: reports: Oophrectomy Exam General: Alert, Oriented x3, Cooperative, No acute distress Dental: WNL Mouth Openin Fingerbreadth Neck Mobility: Normal Mallampati classification: II Respiratory: Lungs clear, Normal breath sounds, No respiratory distress, No a ccessory muscle use Cardiovascular: Regular rate, Normal S1, Normal S2, No murmurs Plan Anesthesia Type: General, Interscalene Block Consent for Procedure(s) Verified and Reviewed: Yes Code Status: Attempt Resuscitation ASA classification: 2-Mild systemic disease Is this case an emergency?: No
[2021-01-17] MEDS ORDERED: ONDANSETRON 4 MG/2 ML VIAL IVP PRN (09:44)
[2021-01-17] MEDS ORDERED: ePHEDrine 50 MG/ML VIAL IVP PRN (09:44)
[2021-01-17] MEDS ORDERED: METOCLOPRAMIDE 10 MG/2 ML VIAL IVP PRN (09:44)
[2021-01-17] MEDS ORDERED: fentaNYL 100 MCG/2 ML VIAL IVP PRN (09:44)
[2021-01-17] MEDS ORDERED: HYDROmorphone 0.5 MG/0.5 ML SYRINGE IVP PRN (09:44)
[2021-01-17] MEDS ORDERED: NALOXONE 0.4 MG/ML VIAL IVP PRN (09:44)
[2021-01-17] MEDS ORDERED: ATROPINE ABBOJECT 1 MG/10 ML SYRINGE IVP PRN (09:44)
[2021-01-17] MEDS ORDERED: MORPHINE 2 MG/ML CARPUJECT IVP PRN (09:44)
[2021-01-17] MEDS ORDERED: LACTATED RINGERS 1,000 ML IV ONE ×2 (09:44→12:48)
[2021-01-17] MEDS ORDERED: LIDOCAINE MPF 2%-EPI 1:200000 20 ML VIAL ONE (09:52)
[2021-01-17] MEDS ORDERED: EPINEPHrine 1 MG/ML AMP ONE (09:52)
[2021-01-17] MEDS ORDERED: LACTATED RINGERS 1,000 ML IV SCH (10:00)
[2021-01-17] MEDS ORDERED: PHENYLEPHRINE 10 MG/ML VIAL ONE (10:58)
[2021-01-17] MEDS ORDERED: EPINEPHrine 1 MG/ML AMP IR ONE (11:19)
[2021-01-17] MEDS ORDERED: SUGAMMADEX 200 MG/2 ML VIAL IVP ONE (12:26)
--- NOTE | 2021-01-17 12:30 | OPERATIVE REPORT ---
Operative Report - General Procedure Date: 01/17/21 Planned Procedure: Arthroscopy right shoulder, with possible repair rotator cuff and biceps tendon Pre-Op Diagnosis: Impingement tendinosis rotator cuff right shoulder Procedure Performed: Arthroscopy right shoulder, intra-articular debridement of anterior superior labrum, subacromial bursectomy and decompression of subacromial space with bursal debridement of supraspinatus Post Op Diagnosis: Same as preoperative diagnosis - Procedure Note Primary Surgeon: Blake Woodruff MD Secondary Surgeon: Gabriele NOVOA Anesthesia Provider: Pasquale Ballesteros CRNA Anesthesia Technique: General ET tube, Regional block Estimated Blood Loss (mL): 5 Indications: And this is a 35-year-old woman with chronic right shoulder pain that has persisted over the past 2 years. Her pain is anterior and lateral. 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 She has painful movement of the right shoulder, especially with at and above shoulder activity. Nonoperative treatment has been tried including use of anti-inflammatory medications, physical therapy, subacromial steroid injections and modification of activity. She has no history of prior right shoulder problems. She has no symptoms of instability. She has no radicular symptoms or neurologic symptoms. She does have a history of noninsulin dependent diabetes mellitus. She had no sign of loss of range of motion to her right shoulder on examination she did have some tenderness over the biceps and greater tuberosity and some pain with resisted abduction but good strength. She had a positive impingement sign.Her routine radiographs are normal. She has had 2 MRI scans of her right shoulder during the past 2 years; the first MRI was with contrast and the latter MRI was without contrast. The MRI scans are suggestive of partial mostly interstitial subtle tear of the supraspinatus but no sign of any full- thickness structural tears of biceps, rotator cuff or labrum.Arthroscopy is being performed to the right shoulder as a last treatment alternative as she has failed nonoperative treatment. Findings: The intra-articular findings was a subtle but definite fraying of the anterior superior labrum. The biceps tendon labrum anchor was entirely normal. The biceps tendon appeared entirely normal. The biceps tendon was retracted into the joint as much as possible and appeared normal. The subscapularis appeared normal. The biceps tendon sling appeared normal without sign of biceps tendon subluxation. The articular footprint was entirely normal. All of the abnormal findings were within the subacromial space with bursal proliferation and inflammation. The rotator cuff from the bursal side was structurally intact with minor fraying and tendinosis near the insertion site. The rotator cuff was probed on both articular and bursal sides without any major structural defect in the cuff. The acromion did not show significant abnormality. The labrum was circumferentially intact as well as the posterior cuff. Complications: None - Other Other Information/Narrative: The patient was brought to the operating room and placed in a supine position. The [place] beachchair positioner was utilized. The patient was carefully positioned with facemask to protect facial structures and placed the neck in a neutral position. The patient was placed in a semisitting position. The right shoulder and right upper extremity were prepped and draped in a sterile manner in the usual fashion. A timeout procedure was performed by the entire operating room team and all were in agreement. The bony landmarks of the shoulder were outlined with a sterile marking pen. A posterior portal was established. The posterior joint was entered with a blunt trocar. The 4 mm 30 degree a [employer] diagnostic arthroscope in conjunction with [employer] video camera was introduced. Inflow was brought through the arthroscope using the [email or web address] arthroscopic pump. Complete diagnostic arthroscopy was performed. An anterior portal was established for probing and outflow. Complete articular and glenohumeral arthroscopy was performed. The articular cartilage of both glenoid and humeral head. Normal. The rotator interval appeared normal. The biceps tendon was drawn into the joint and the entire length of the biceps tendon did not show any abnormality, inflammation or sign of tendinosis. The superior and anterior labrum showed some fraying but the biceps labral anchor was normal. The subscapularis was normal without sign of fraying in the biceps sling did not show any sign of laxity or instability to the biceps tendon. The rotator cuff footprint appeared entirely normal without sign of articular partial tear. The glenoid labrum was circumferentially intact as well as the posterior cuff. Next the arthroscope was introduced into the subacromial space, again using the posterior portal. A lateral subacromial portal was established and initial visualization was poor until some clearing of subacromial bursal tissue could be achieved. There was considerable proliferation of bursal tissue in the subacromial space that need to be removed; this was accomplished using the [employer] full-radius james and the radiofrequency probe. The rotator cuff was then visualized clearly from anterior to posterior, with external and internal rotation and abduction. There was mild fraying of the supraspinatus insertion site but no structural defect to the rotator cuff insertion on the bursal side. The undersurface of the acromion was visualized and did not show any abnormal osteophytes. The arthroscopy was terminated, incision sites closed with 3-0 nylon, dry sterile dressing and sling applied to right upper extremity. She tolerated the procedure well. She did receive 2 g of Ancef intravenously prior to the procedure. A physician administrative sales assistant was utilized to help with positioning and use of arthroscopic instrumentation during the procedure, closure and sling application.
[2021-01-17] MEDS ORDERED: oxyCODONE 5 MG TABLET ONE (13:49)
[2021-01-17 14:32] VITALS: BP 119/71
--- NOTE | 2021-01-17 16:00 | ANESTHESIA POST OP EVALUATION ---
Anesthesia Post Eval - Post Anesthesia Eval Vitals: Last Vital Signs Temp 36.9 C 01/17/21 14:15 Pulse 82 01/17/21 14:15 Resp 16 01/17/21 14:15 BP 119/71 01/17/21 14:15 Pulse Ox 96 01/17/21 14:15 CV Function Including HR & BP: Stable Pain Control: Satisfactory Nausea & Vomiting: Negative Mental Status: Baseline Respiratory Status: Airway Patent Hydration Status: Satisfactory Anesthesia Complications: None
== END 2021-01-17 09:07 | disposition home or self-care (01) ==
LOC: SDS 09:06
PROVIDERS: ATTEND Orthopaedic Surgery
DX: M75.41 Impingement syndrome of right shoulder (principal); M75.81 Other shoulder lesions, right shoulder; E66.9 Obesity, unspecified; Z68.36 Body mass index [BMI] 36.0-36.9, adult
CPT/HCPCS: 29822; 81025; A9270; C1713; J0131; J7120